=== PATIENT | female | born 2000 | race American Indian/Alaskan Native ===

== ENCOUNTER 2022-03-08 16:21 | Emergency (ER) | payer MEDICAID ==
[2022-03-08 16:29] VITALS: BP 135/100
--- NOTE | 2022-03-08 22:40 | Emergency Department Report ---
- General Chief Complaint: Upper Respiratory Infection Stated Complaint: CHILLS AND RUNNY NOSE Time Seen by Provider: 03/08/22 22:28 Source: patient, EMS Mode of arrival: Ambulatory Limitations: No Limitations - History of Present Illness Initial Comments: Patient presents with 2-day history of runny nose cough myalgias headache sore throat subjective fever. She traveled with a friend and her family and one of the older people in the car was coughing a lot. Now her and her friend are both sick. She does not know if it was COVID. The following day she started having symptoms. She has no dysphagia. No loss of taste smell or appetite. Associated Symptoms: chills, myalgias, headache, rhinorrhea, nasal congestion, sore throat, cough. denies: diaphoresis, stiff neck, chest pain, shortness of breath, abdominal pain, nausea, vomiting, diarrhea, dysuria, rash, confusion, right sweats, weight loss, epistaxis, hoarseness, ear pain Treatments Prior to Arrival: "cold medicine" (Only helped for a short period) - Related Data Previous Rx's Medication Instructions Recorded Last Taken Type Famotidine [Pepcid] 10 mg PO BID #10 tablet 07/01/14 Unknown Rx Allergies Allergy/AdvReac Type Severity Reaction Status Date / Time No Known Allergies Allergy Verified 03/08/22 16:29 ED Review of Systems ROS: Stated complaint: CHILLS AND RUNNY NOSE Other details as noted in HPI Comment: All other systems reviewed and negative Constitutional: see HPI Eyes: denies: eye pain, eye discharge, vision change ENT: as per HPI Respiratory: see HPI. denies: shortness of breath Cardiovascular: denies: chest pain, palpitations, edema Endocrine: denies: excessive sweating Gastrointestinal: denies: abdominal pain, nausea, vomiting, diarrhea, constipation Genitourinary: denies: urgency, dysuria, frequency, hematuria Musculoskeletal: myalgia. denies: back pain Skin: denies: rash Neurological: headache. denies: weakness, numbness, paresthesias, confusion, abnormal gait, vertigo Psychiatric: denies: anxiety, depression Hematological/Lymphatic: easy bleeding, easy bruising ED Past Medical Hx - Past Medical History Previous Medical History?: No - Surgical History Past Surgical History?: No - Family History Family history: no significant - Social History Smoking Status: Never Smoker Substance Use Type: None - Medications Home Medications: Home Medications Medication Instructions Recorded Confirmed Last Taken Type Famotidine [Pepcid] 10 mg PO BID #10 tablet 07/01/14 Unknown Rx ED Physical Exam - General Limitations: No Limitations General appearance: alert, in no apparent distress - Head Head exam: Present: atraumatic, normocephalic - Eye Eye exam: Present: normal appearance, PERRL, EOMI - ENT ENT exam: Present: normal orophraynx, mucous membranes moist, TM's normal bilaterally, normal external ear exam, other (Moderate turbinate edema) - Neck Neck exam: Present: normal inspection, full ROM. Absent: tenderness, meningismus - Respiratory Respiratory exam: Present: normal lung sounds bilaterally. Absent: respiratory distress, wheezes, rales, rhonchi - Cardiovascular Cardiovascular Exam: Present: regular rate, normal rhythm, normal heart sounds - GI/Abdominal GI/Abdominal exam: Present: soft. Absent: distended, tenderness - Neurological Exam Neurological exam: Present: alert, oriented X3, CN II-XII intact - Psychiatric Psychiatric exam: Present: normal affect, normal mood - Skin Skin exam: Present: warm, dry, intact ED Course Vital Signs 03/08/22 03/08/22 16:26 22:49 Temperature 98.7 F Pulse Rate 98 H Respiratory 16 Rate Blood Pressure 135/100 [Left] O2 Sat by Pulse 97 Oximetry - Reevaluation(s) Reevaluation #1: 03/08/22 22:44 Likely COVID/viral syndrome. Long discussion with patient regarding her request for antibiotics. Discussed with her use of guaifenesin 1200 mg twice daily, warm compresses to the sinuses, warm salt water gargles, normal saline nasal spray. Ibuprofen or Tylenol as needed for fever or pain and tincture of time. I offered her a strep screen although I discussed with her I did not feel that this was likely strep and she declined. ED Medical Decision Making - Medical Decision Making Likely viral syndrome/COVID. Recommended COVID test at home. Critical care attestation.: If time is entered above; I have spent that time in minutes in the direct care of this critically ill patient, excluding procedure time. ED Disposition Clinical Impression: Viral syndrome, URI (upper respiratory infection), Suspected COVID-19 virus infection Disposition: HOME / SELF CARE / HOMELESS Is pt being admited?: No Condition: Stable Instructions: COVID-19 Frequently Asked Questions, COVID-19, Viral Respiratory Infection, [id number], Hand Washing, [id number], COVID-19: How to Protect Yourself and Others - [facility] Additional Instructions: Likely viral syndrome/COVID. Recommended COVID test at home.Likely COVID/viral syndrome. Discussed with her use of guaifenesin 1200 mg twice daily, warm comp resses to the sinuses, warm salt water gargles, normal saline nasal spray. Ibuprofen or Tylenol as needed for fever or pain and tincture of time. Referrals: [facility] [Other] - 3-5 Days Forms: Work/School Release Form(ED) Time of Disposition: 22:49
== END 2022-03-08 22:59 | disposition home or self-care (01) ==
LOC: ED 16:21
DX: J06.9 Acute upper respiratory infection, unspecified (principal); B34.9 Viral infection, unspecified; Z20.822 Contact with and (suspected) exposure to COVID-19; Z79.899 Other long term (current) drug therapy
CPT/HCPCS: 99283